=== PATIENT | female | born 1995 | race Caucasian/White ===

== ENCOUNTER 2019-04-20 15:31 | Emergency (ER) | payer SELFPAY ==
[~2019-04-20] VITALS: Ht 149.9 cm; Wt 56.2 kg
--- NOTE | 2019-04-20 16:11 | NUR ---
URINE SENT TO LAB
--- NOTE | 2019-04-20 16:15 | NUR ---
PT TO ER BED 12 C/O OF HEADACHE. PT STATES THAT SHE HAS HAD HEADACHE SINCE 2PM AND VOMITING AND NAUSEOUS. NOT IN ANY DISTRESS. CONNECTED TO MONITOR.
[2019-04-20] MEDS ORDERED: PROCHLORPERAZINE EDISYLATE 10 MG/2 ML VIAL ONE (16:17)
[2019-04-20] MEDS ORDERED: diphenhydrAMINE HCL 50 MG/ML VIAL ONE (16:17)
[2019-04-20] MEDS ORDERED: diphenhydrAMINE HCL 50 MG/ML VIAL IV ONE (16:30)
[2019-04-20] MEDS ORDERED: PROCHLORPERAZINE EDISYLATE 10 MG/2 ML VIAL IVP ONE (16:30)
[2019-04-20] MEDS ORDERED: IV NS 0.9% 1,000 ML BAG IV ONE (16:30)
[2019-04-20] MEDS ORDERED: KETOROLAC TROMETHAMINE INJ 30 MG/ML VIAL IV ONE (16:30)
[2019-04-20] MEDS ORDERED: KETOROLAC TROMETHAMINE INJ 30 MG/ML VIAL ONE (16:36)
--- NOTE | 2019-04-20 16:42 | NUR ---
flu taken and sent to lab
[2019-04-20 17:24] VITALS: BP 114/76
--- NOTE | 2019-04-20 17:24 | NUR ---
IV removed. Catheter intact and site benign. Pressure and 4x4 applied to site. No bleeding noted. Patient discharged to home in stable condition. Written and verbal after care instructions given. Patient verbalizes understanding of instruction.
== END 2019-04-20 17:25 | disposition home or self-care (01) ==
LOC: ER 15:32
DX: G43.909 Migraine, unspecified, not intractable, without status migrainosus (principal); R11.2 Nausea with vomiting, unspecified; Z98.890 Other specified postprocedural states
CPT/HCPCS: 84703; 96361; 96374; 96375; 99283; J0780; J1200; J1885; J7030